=== PATIENT | female | born 1955 | race American Indian/Alaskan Native ===

== ENCOUNTER → 2018-08-26 | Day surgery (SDC) | payer OTHER ==
--- NOTE | 2018-08-25 20:44 | Pre Op History & Physical ---
DATE OF SURGERY: August 26, 2018. CHIEF COMPLAINT: Nasal obstruction of chronic sinusitis. HISTORY OF PRESENT ILLNESS: This 63-year-old female has a history of nasal obstruction, worse on the right side, a long-standing. The patient has no epistaxis. She has decreased sense of smell. She complains of frontal and maxillary pain. She has no previous injuries to the nose. The patient has obstructive sleep apnea and has difficulty using the nasal CPAP. Her condition has been treated with topical nasal steroid, decongestant, antibiotics with no improvement. A CT scan of paranasal sinuses done before surgery showed. The patient has chronic sinusitis involving the ethmoid sinuses on both sides, maxillary sinus involvement on both sides, sphenoid sinus involvement of both sides with deviated nasal septum to the left. REVIEW OF SYSTEMS: System review showed no recent cardiovascular, respiratory, or GI problem. PAST MEDICAL HISTORY: The patient has history of atrial fibrillation and polymyalgia rheumatica. PAST SURGICAL HISTORY: The patient has a trigger finger repair. ALLERGIES: SHE IS ALLERGIC TO CODEINE. MEDICATIONS: She is on Atenolol, prednisone, and omeprazole. SOCIAL HISTORY: Nonsmoker, nondrinker. FAMILY HISTORY: Noncontributory. PHYSICAL EXAMINATION: VITAL SIGNS: On examination, the patient's vital signs were within normal limits. EARS: Normal tympanic membranes bilaterally. NASAL: Deviated nasal septum to the right side about 40%, midportion to the left side about 30%. OROPHARYNX AND ORAL CAVITY: Show 2+ tonsils bilaterally with Mallampati level three. NECK: No lymph node or thyroid palpable. CHEST: Good air entry bilaterally. Cardiovascular : S1 and S2. No murmur noted. Ms. Tatum has chronic sinusitis nasal obstruction which has been resistant to conservative therapy. The suggested treatment is endoscopic sinus surgery, septoplasty, resection, inferior turbinate, and other necessary procedure. Complication of procedure includes, but not limited to bleeding, infection, thrombosis of the combines, double vision, meningitis, septal perforation, septal hematoma, persistent nasal obstruction, persistent nasal crusting, nasal deformity, recurrence of the sinus problem, and persistent nasal obstruction. Alternatives will be continue observation, continue antibiotic therapy, topical nasal steroid therapy, systemic steroid therapy decongestant. The patient has elected to undergo surgical procedure. MD CARYN Pickard/MODL /[id number] cc: Shun Jane MD
[~2018-08-26] MED LIST: ACETAMINOPHEN 1000 MG/100 ML IV ONE; ATENOLOL25 MG PO; CALCIUM 600 +1 EAC2 PO; COLLAGEN PO; DESFLURANE 240 ML BTL INH ONE; DEXAMETHASONE SOD PHOS 10 MG/1 ML VIAL ONE; DEXAMETHASONE SOD PHOS INJ 4 MG/ML VIAL ONE; EPINEPHRINE HCL 1:1000 1ML 1 MG/ML AMP ONE; FENTANYL CITRATE/PF 100MCG/2 ML INJ ONE; HYDRALAZINE HCL 20 MG/ML VIAL ONE; LIDOCAINE 1% W/EPINEPHRINE 20 ML VIAL ONE; LIDOCAINE HCL 2% JELLY 5 ML TUBE ONE; LIDOCAINE HCL 2% LOCAL INJ 5 ML SDV VIAL INJ ONE; MIDAZOLAM HCL 2 MG/2 ML VIAL ONE; MULTIVITAMINS1 EAC8 PO; OMEPRAZOLE40 MG PO; ONDANSETRON HCL INJ 2MG/ML 2ML 2 MG/ML VIAL ONE; PREDNISONE5 MG PO; PROPOFOL IV EMULSION 10 MG/ML 20 ML VIAL ONE; ROCURONIUM BROMIDE 10 MG/ML 5ML VIAL ONE; SUGAMMADEX SODIUM 200 MG/2 ML VIAL IV ONE; TRAMADOL HCL 50 MG TAB ONE; VITAMIN B12 PO
[2018-08-26 16:00] VITALS: BP 123/66
--- NOTE | 2018-08-26 18:44 | Operative Report ---
DATE OF PROCEDURE: 08/26/2018 SURGEON: All Campos MD CHIEF COMPLAINT: Chronic sinusitis with nasal obstruction. POSTOPERATIVE DIAGNOSIS: Chronic sinusitis with nasal obstruction. OPERATIVE PROCEDURES: 1. Bilateral anterior and posterior ethmoidectomy. 2. Bilateral maxillary sinus antrostomy. 3. Bilateral resection of polyps from maxillary antrum. 4. Bilateral sphenoidectomy. 5. Septoplasty. ANESTHESIA: Dr. Subramanian. INDICATIONS: This 63-year-old female has history of nasal obstruction, postnasal drip, and frontal and maxillary pain. She has decreased sense of smell. The patient has difficulty using her nasal CPAP because of her nasal obstruction. Her condition has been treated with topical nasal steroid, decongestant, antibiotics over many months with no improvement of the condition. On examination, she was noted to have a deviated nasal septum to the right side anteriorly about 40% in the mid to posterior portion on the left about 40%. A CT scan of paranasal sinuses done before surgery showed the patient has involvement of the ethmoid sinuses bilaterally. Maxillary sinus involvement, worse on the left side than the right. Sphenoid sinus involvement, worse on the right side. It also confirmed the nasal septum. It was decided endoscopic sinus surgery, septoplasty, and other necessary procedures will be beneficial for her. DESCRIPTION OF PROCEDURE: The patient was taken to operating room, put under general anesthesia, endotracheally intubated. The nose was injected with 1% Xylocaine with 1:100,000 epinephrine for hemostasis. An epinephrine-soaked pledget was inserted into the nose. These were subsequently removed. The left paranasal sinuses were approached first. Middle turbinate was medialized. The bulla ethmoidalis was entered. Anterior and posterior ethmoid sinuses were dissected in a systematic fashion. Inflamed mucosa was noted in the ethmoid sinuses on both sides. These were removed. Care was taken during dissection to ascertain, although was not entered. The sphenoid sinus was entered through the natural ostium. This was enlarged using the micro shaver. Inflamed tissue in the sphenoid sinus was dissected using the micro shaver. Using a curved probe, the natural ostium and maxillary sinus were entered. This was enlarged anteriorly and posteriorly using backbiter and Yandel-Cut forceps respectively. Large polyp and inflamed tissue were noted in the maxillary antrum on the left side. These were dissected using the 120-degree tip of the micro shaver. A nidus of infection with inspissated pus was noted in the maxillary sinus. This was removed and sent for anaerobic, aerobic, AFB, and fungal culture. The right paranasal sinuses were approached. Middle turbinate was medialized. The bulla ethmoidalis was entered. Anterior and posterior ethmoid sinuses were dissected in systematic fashion. Inflamed tissue was noted in both anterior and posterior ethmoid sinus area. Care was taken during dissection to ascertain, although it was not entered. A pocket of mucopus was noted in the posterior ethmoid sinus area. When this was opened up, the mucopus was suctioned out. The sphenoid sinus entered through natural ostium. This was enlarged using a micro shaver. Inflamed tissue in the sphenoid sinus on the right side was dissected using the micro shaver. Using a curved probe, natural ostium and maxillary sinus were entered. This was enlarged anterior and posteriorly using a backbiter and Yandel-Cut forceps respectively. Inflamed tissue of the maxillary antrum was dissected using the 120-degree tip of micro shaver. The right maxillary sinus just like the left one was reexamined using the 45-degree telescope. No other abnormality was noted. The septoplasty was performed. The hemitransfixion incision was done on the left side. Mucoperichondrial flap was elevated on the left. Bony cartilaginous junction was encountered and this was . Perpendicular plate of the ethmoid was transected, this was removed along with the vomer. The septal spur and cartilaginous spur were removed using [place] elevator and bony spur removed using a 4-mm straight chisel. The quadrangular cartilage after being freed from posterior inferior constrain was able to swing back in the midline. The hemitransfixion incision was closed using 4-0 chromic suture in interrupted fashion. Septal whipstitch was done using 4-0 plain gut suture to reapproximate the mucoperichondrial flap and prevent septal hematoma formation. NasoPore was inserted in sinus cavities on either side. This was done to prevent synechiae formation and for hemostasis. Because of the oozing in the nasal cavity and to prevent septal hematoma formation, NasoPore was inserted on either side of the septum in the nasal cavity as to prevent accumulation of hematoma in between the two mucoperichondrial flaps. The patient tolerated the above procedure well with estimated blood lossabout 50 mL. She was given 12 mg of Decadron intraoperatively. The patient was able to be transferred to recovery room in stable condition. MD CARYN Pickard/VICENTA /[id number]
--- OUTSIDE RECORDS SUMMARY | 2018-08-27 15:11 | XMS REPORT ---
Author Author Sahra Carrillo Organization [employer] Address Unknown Phone Unavailable Care Team Providers Care Director Of Recruiting Name Role Phone Sahra Carrillo CP Unavailable Allergies, Adverse Reactions, Alerts Substance Reaction Event Type Codeine Info Not Available Drug Allergy Problems Problem Type Condition Code Onset Dates Condition Status Assessment Counseling NOS Z71.9 Active Assessment Acute pain of right hip M25.551 Active Assessment Osteoarthritis involving multiple joints on both sides of body M15.9 Active Assessment Chronic cough R05 Active Problem Osteoarthritis involving multiple joints on both sides of body M15.9 Active Assessment PMR (polymyalgia rheumatica) M35.3 Active Problem PMR (polymyalgia rheumatica) M35.3 Active Assessment Pain in left shoulder M25.512 Active Assessment Acute pain of left hip M25.552 Active Assessment Menopausal and perimenopausal disorder N95.9 Active Assessment Pain in right shoulder M25.511 Active Medications Medication Code System Code Instructions Start Date End Date Status Dosage Zorvolex [facility] [address]-24 35 MG Orally Twice a day prn with food September 13, 2016 Active 1 capsule with food or milk as needed Omeprazole [facility] [address]-67 40 MG Orally Once a day Active [address] [facility] [address]-65 10 MG Orally Once a day with food October 03, 2016 Active [address] [facility] [address]-49 25 MG Orally Once a day Active 1 tablet Vital Signs Date/Time: October 03, 2016 Height 65 in Blood Pressure Diastolic 66 mm Hg Blood Pressure Systolic 121 mm Hg Weight 186 lbs Results No Known Results Summary Purpose [employer] Submission
--- OUTSIDE RECORDS SUMMARY | 2018-08-27 15:11 | XMS REPORT ---
Author Author Sahra Carrillo Organization [employer] Address Unknown Phone Unavailable Care Team Providers Care Cleaner And Dyer Name Role Phone Sahra Carrillo CP Unavailable Allergies No Known Allergies Problems Problem Type Condition Code Onset Dates Condition Status Problem Osteoarthritis involving multiple joints on both sides of body M15.9 Active Assessment Chronic cough R05 Active Problem PMR (polymyalgia rheumatica) M35.3 Active Medications No Known Medications Results No Known Results Summary Purpose [employer] Submission
--- OUTSIDE RECORDS SUMMARY | 2018-08-27 15:11 | XMS REPORT ---
Author Author Connie Wise Organization [employer] Address Unknown Phone Unavailable Care Team Providers Care Assistant Teacher Primary Name Role Phone Connie Wise CP Unavailable Allergies No Known Allergies Problems Problem Type Condition Code Onset Dates Condition Status Problem Bruit R09.89 Active Problem Supraventricular tachycardia I47.1 Active Problem Chest pain, unspecified R07.9 Active Medications No Known Medications Results No Known Results Summary Purpose [employer] Submission
--- OUTSIDE RECORDS SUMMARY | 2018-08-27 15:11 | XMS REPORT ---
Author Author Connie Wise Organization [employer] Address Unknown Phone Unavailable Care Team Providers Care Senior Loan Processor Name Role Phone Connie Wise CP Unavailable Allergies, Adverse Reactions, Alerts Substance Reaction Event Type Codeine Sulfate Info Not Available Drug Allergy Problems Problem Type Condition Code Onset Dates Condition Status Problem Bruit R09.89 Active Problem Supraventricular tachycardia I47.1 Active Problem Chest pain, unspecified R07.9 Active Assessment Bruit R09.89 Active Assessment Chest pain, unspecified R07.9 Active Assessment Supraventricular tachycardia I47.1 Active Medications Medication Code System Code Instructions Start Date End Date Status Dosage PredniSONE [facility] [address]-96 4 mg Orally Once a day Active 1 tablet Omeprazole [facility] 34255956862 20 MG Orally Once a day Active 1 capsule Atenolol [facility] 91581444571 25 MG Orally Once a day Active 1 tablet Vital Signs Date/Time: July 17, 2018 BMI 29.86 Index Weight 185 lbs Height 5ft 6in in Cardiac Monitoring Heart Rate 67 /min Blood Pressure Diastolic 81 mm Hg Blood Pressure Systolic 120 mm Hg Results No Known Results Summary Purpose [employer] Submission
--- OUTSIDE RECORDS SUMMARY | 2018-08-27 15:11 | XMS REPORT ---
Author Author Connie Wise Organization [employer] Address Unknown Phone Unavailable Care Team Providers Care Internet Application Developer Name Role Phone Connie Wise CP Unavailable Allergies No Known Allergies Problems Problem Type Condition Code Onset Dates Condition Status Problem Bruit R09.89 Active Problem Supraventricular tachycardia I47.1 Active Problem Chest pain, unspecified R07.9 Active Medications No Known Medications Results No Known Results Summary Purpose [employer] Submission
--- OUTSIDE RECORDS SUMMARY | 2018-08-27 15:11 | XMS REPORT ---
Author Author Sahra Carrillo Organization [employer] Address Unknown Phone Unavailable Care Team Providers Care Donor Services Technician Name Role Phone Sahra Carrillo CP Unavailable Allergies No Known Allergies Problems Problem Type Condition Code Onset Dates Condition Status Problem Osteoarthritis involving multiple joints on both sides of body M15.9 Active Assessment PMR (polymyalgia rheumatica) M35.3 Active Problem PMR (polymyalgia rheumatica) M35.3 Active Medications Medication Code System Code Instructions Start Date End Date Status Dosage PredniSONE [facility] [address]-51 5 MG Orally bid with food Jan 29, 2017 Active 1 tablet Results No Known Results Summary Purpose [employer] Submission
--- OUTSIDE RECORDS SUMMARY | 2018-08-27 15:11 | XMS REPORT ---
Author Author Sahra Carrillo Organization [employer] Address Unknown Phone Unavailable Care Team Providers Care Freight Weigher Name Role Phone Sahra Carrillo CP Unavailable Allergies No Known Allergies Problems Problem Type Condition Code Onset Dates Condition Status Problem Osteoarthritis involving multiple joints on both sides of body M15.9 Active Assessment SOB (shortness of breath) R06.02 Active Problem PMR (polymyalgia rheumatica) M35.3 Active Medications Medication Code System Code Instructions Start Date End Date Status Dosage Ergocalciferol [facility] [address]-94 [address] UNIT Orally once weekly October 05, 2016 Active 1 tab(s) Results No Known Results Summary Purpose [employer] Submission
--- OUTSIDE RECORDS SUMMARY | 2018-08-27 15:11 | XMS REPORT ---
Author Author Connie Wise Organization [employer] Address Unknown Phone Unavailable Care Team Providers Care Cow Puncher Name Role Phone Connie Wise CP Unavailable [...] Instructions Start Date End Date Status Dosage Omeprazole [facility] 65490406909 20 MG Orally Once a day Active 1 capsule Atenolol [facility] 29252058698 25 MG Orally Once a day Active 1 tablet PredniSONE [facility] [address]-00 4 mg Orally Once a day Active 1 tablet Vital Signs Date/Time: May 20, 2018 BMI 29.86 Index Weight 185 lbs Height 5ft 6in in Cardiac Monitoring Heart Rate 63 /min Blood Pressure Diastolic 81 mm Hg Blood Pressure Systolic 120 mm Hg Results No Known Results Summary Purpose [employer] Submission
--- OUTSIDE RECORDS SUMMARY | 2018-08-27 15:11 | XMS REPORT ---
Author Author Sahra Carrillo Organization [employer] Address Unknown Phone Unavailable Care Team Providers Care Clinical Nursing Coordinator Name Role Phone Sahra Carrillo CP Unavailable Allergies, Adverse Reactions, Alerts Substance Reaction Event Type Codeine Info Not Available Drug Allergy Problems Problem Type Condition Code Onset Dates Condition Status Assessment Chronic cough R05 Active Assessment Osteoarthritis involving multiple joints on both sides of body M15.9 Active Assessment Counseling NOS Z71.9 Active Problem Osteoarthritis involving multiple joints on both sides of body M15.9 Active Assessment PMR (polymyalgia rheumatica) M35.3 Active Problem PMR (polymyalgia rheumatica) M35.3 Active Assessment Acute pain of left hip M25.552 Active Assessment Acute pain of right hip M25.551 Active Assessment Pain in right shoulder M25.511 Active Assessment Pain in left shoulder M25.512 Active Medications Medication Code System Code Instructions Start Date End Date Status Dosage Omeprazole ND 54662234670 40 MG Orally Once a day Active 1 capsule Atenolol ND 45288669006 25 MG Orally Once a day Active 1 tablet PredniSONE ND 92802252191 5 MG Orally bid with food Active 1 tablet Zorvolex ND 29190439499 35 MG Orally Twice a day prn with food September 13, 2016 Active 1 capsule with food or milk as needed Ergocalciferol ND 30853059317 [address]68 UNIT Orally once weekly October 05, 2016 Active 1 tab(s) Vital Signs Date/Time: Feb 20, 2017 Height 65 in Blood Pressure Diastolic 70 mm Hg Blood Pressure Systolic 114 mm Hg Weight 196 lbs Results No Known Results Summary Purpose [employer] Submission
--- OUTSIDE RECORDS SUMMARY | 2018-08-27 15:11 | XMS REPORT ---
Author Author Sahra Carrillo Organization [employer] Address Unknown Phone Unavailable Care Team Providers Care [employer] Name Role Phone Sahra Carrillo CP Unavailable Allergies No Known Allergies Problems Problem Type Condition Code Onset Dates Condition Status Problem Osteoarthritis involving multiple joints on both sides of body M15.9 Active Assessment PMR (polymyalgia rheumatica) M35.3 Active Problem PMR (polymyalgia rheumatica) M35.3 Active Assessment Pure hypercholesterolemia E78.00 Active Medications No Known Medications Results No Known Results Summary Purpose [employer] Submission
--- OUTSIDE RECORDS SUMMARY | 2018-08-27 15:11 | XMS REPORT ---
Author Author Sahra Carrillo Organization [employer] Address Unknown Phone Unavailable Care Team Providers Care Strings Teacher Name Role Phone Sahra Carrillo CP Unavailable Allergies No Known Allergies Problems Problem Type Condition Code Onset Dates Condition Status Problem Osteoarthritis involving multiple joints on both sides of body M15.9 Active Problem PMR (polymyalgia rheumatica) M35.3 Active Medications No Known Medications Results No Known Results Summary Purpose [employer] Submission
--- OUTSIDE RECORDS SUMMARY | 2018-08-27 15:11 | XMS REPORT | Continuity of Care Document ---
Author Author [facility] Interface Address Unknown Phone Unavailable Problems Problem Status Onset Date Classification Date Reported Comments Source Osteoarthritis involving multiple joints on both sides of body Active Diagnosis 06/25/2018 Sahra Najam Chronic cough Active Diagnosis 06/27/2017 Sahra Najam PMR Active Problem 06/25/2018 Sahra Najam Pure hypercholesterolemia Active Diagnosis 10/26/2016 Sahra Najam SOB Active Diagnosis 10/11/2016 Sahra Najam Bruit Active Problem 08/07/2018 Senthil Tan MD, PA Chest pain, unspecified Active Problem 08/07/2018 Senthil Tan MD, PA Supraventricular tachycardia Active Problem 08/07/2018 Senthil Tan MD, PA Counseling NOS Active Diagnosis 06/25/2018 Sahra Najam Acute pain of left hip Active Diagnosis 06/25/2018 Sahra Najam Acute pain of right hip Active Diagnosis 06/25/2018 Sahra Najam Pain in right shoulder Active Diagnosis 06/25/2018 Sahra Najam Pain in left shoulder Active Diagnosis 06/25/2018 Sahra Najam Menopausal and perimenopausal disorder Active Diagnosis 10/10/2016 Sahra Najam Muscle spasm Active Diagnosis 06/25/2018 Sahra Najam Medications Medication Details Route Status Patient Instructions Ordering Provider Order Date Source PredniSONE 3 tabs Orally Active 1 MG Orally daily Najam 06/22/2018 Sahra Najam Tizanidine HCl 1 tablet as needed Orally Active 4 MG Orally bedtime Najam 06/11/2018 Sahra Najam PredniSONE 1 tab(s) with food Orally Active 10 mg Orally daily Najam 04/23/2018 Sahra Najam Tizanidine HCl 1 tablet as needed Orally Active 4 MG Orally bedtime Najam 11/12/2017 Sahra Najam Diclofenac Sodium 1 tab(s) with food as needed Orally Active 50 MG Orally Twice a day Najam 11/12/2017 Sahra Najam PredniSONE 1 tablet Orally Active 5 mg Orally daily Najam 09/23/2017 Sahra Gerardo Zorvolex 1 capsule with food or milk as needed Orally Active 35 MG Orally Twice a day [facility] 09/02/2017 Sahra Nanelson PredniSONE 4 tabs Orally Active 1 mg Orally Once a day [facility] 04/10/2017 Sahra Naja PredniSONE 1 tablet Orally Active 1 mg Orally Once a day [facility] 04/10/2017 Sahra Nanelson PredniSONE 1 tablet Orally Active 5 MG Orally bid with food [facility] 01/29/2017 Sahra Nanelson Ergocalciferol 1 tab(s) Orally Active 35303 UNIT Orally once weekly [facility] 10/05/2016 Sahra [facility] Ergocalciferol 1 tab(s) Orally Active 16590 UNIT Orally once weekly [facility] 10/05/2016 Sahra Nanelson PredniSONE 1 tablet Orally Active 10 MG Orally Once a day with food [facility] 10/03/2016 Sahra Nanelsonm Zorvolex 1 capsule with food or milk as needed Orally Active 35 MG Orally Twice a day prn with food [facility] 09/13/2016 Sahra Nanelsonm Zorvolex 1 capsule with food or milk as needed Orally Active 35 MG Orally Twice a day prn with food [facility] 09/13/2016 Sahra [facility] Omeprazole 1 capsule Orally Active 40 MG Orally Once a day Frandy Tan MD, PA,[facility] Atenolol 1 tablet Orally Active 25 MG Orally Once a day Frandy Tan MD, PA,[facility] PredniSONE 1 tablet Orally Active 10 MG Orally Once a day Frandy Tan MD, PA Omeprazole 1 capsule Orally Active 40 MG [facility] PredniSONE 1 tablet Orally Active 5 mg [facility] PredniSONE 1 tablet Orally Active 5 MG Orally bid [facility] 1 capsule Orally Active 40 mg Orally Once a day Frandy Tan MD, PA Atenolol 1 tablet Orally Active 25 MG Orally Once a day Senthil Gardner MD, PA PredniSONE 1 tablet Orally Active 5 MG Orally bid with food [facility] PredniSONE 1 tablet Orally Active 4 mg Orally Once a day Frandy Tan MD, PA Omeprazole 1 capsule Orally Active 20 MG Orally Once a day Frandy Tan MD, PA,Sahrajoseph Carrillo PredniSONE TAKE 1 TABLET BY MOUTH EVERY DAY WITH FOOD po Active 10 MG po daily Najam Sahra Najam PredniSONE 3 tabs orally Active 1 mg orally daily Najam Sahra Najam PredniSONE 3 mg TAKE 1 TABLET BY MOUTH EVERY DAY NA Active - Najam Sahra Najam Allergies, Adverse Reactions, Alerts Substance Category Reaction Severity Reaction type Status Date Reported Comments Source Codeine Adverse Reaction Info Not Available Adverse Reaction Active 06/18/2018 Sahra Najam Codeine Sulfate Adverse Reaction Info Not Available Adverse Reaction Active 07/17/2018 Senthil Tan MD, PA Immunizations Immunization Date Given Site Status Last Updated Comments Source Results Order Name Results Value Reference Range Date Interpretation Comments Source Vital Signs Vital Sign Value Date Comments Source Weight 185 07/17/2018 Senthil Tan MD, PA Heart Rate 67 07/17/2018 Senthil Tan MD, PA Diastolic (mm Hg) 81 07/17/2018 Senthil Tan MD, PA Systolic (mm Hg) 120 07/17/2018 Senthil Tan MD, PA Height 65 06/18/2018 Sahra Najam Diastolic (mm Hg) 73 06/18/2018 Sahra Najam Systolic (mm Hg) 122 06/18/2018 Sahra Najam Weight 189.0 06/18/2018 Sarha Najam Weight 185 05/20/2018 Senthil Tan MD, PA Heart Rate 63 05/20/2018 Senthil Tan MD, PA Diastolic (mm Hg) 81 05/20/2018 Senthil Tan MD, PA Systolic (mm Hg) 120 05/20/2018 Senthil Tan MD, PA Height 65 02/11/2018 Sahra Najam Diastolic (mm Hg) 70 02/11/2018 Sahra Najam Systolic (mm Hg) 120 02/11/2018 Sahra Najam Weight 193.8 02/11/2018 Sahra Najam Height 65 11/12/2017 Sahra Najam Diastolic (mm Hg) 66 11/12/2017 Sahra Najam Systolic (mm Hg) 122 11/12/2017 Sahra Najam Weight 188.0 11/12/2017 Sahra Najam Height 65 09/02/2017 Sahra Najam Diastolic (mm Hg) 73 09/02/2017 Sahra Najam Systolic (mm Hg) 123 09/02/2017 Sahra Najam Weight 192 09/02/2017 Sahra Najam Height 65 06/25/2017 Sahra Najam Diastolic (mm Hg) 77 06/25/2017 Sahra Najam Systolic (mm Hg) 122 06/25/2017 Sahra Najam Weight 193 06/25/2017 Sahra Najam Height 65 02/20/2017 Sahra Najam Diastolic (mm Hg) 70 02/20/2017 Sahra Najam Systolic (mm Hg) 114 02/20/2017 Sahra Najam Weight 196 02/20/2017 Sahra Najam Height 65 12/19/2016 Sahra Najam Diastolic (mm Hg) 73 12/19/2016 Sahra Najam Systolic (mm Hg) 110 12/19/2016 Sahra Najam Weight 191 12/19/2016 Sahra Najam Weight 189 11/01/2016 Senthil Tan MD, PA Diastolic (mm Hg) 70 11/01/2016 Senthil Tan MD, PA Systolic (mm Hg) 120 11/01/2016 Senthil Tan MD, PA Height 65 10/31/2016 Sahra Najam Diastolic (mm Hg) 70 10/31/2016 Sahra Najam Systolic (mm Hg) 114 10/31/2016 Sahra Najam Weight 190 10/31/2016 Sahra Najam Height 65 10/03/2016 Sahra Najam Diastolic (mm Hg) 66 10/03/2016 Sahra Najam Systolic (mm Hg) 121 10/03/2016 Sahra Najam Weight 186 10/03/2016 Sahra Najam Height 65 09/13/2016 Sahra Najam Diastolic (mm Hg) 85 09/13/2016 Sahra Najam Systolic (mm Hg) 123 09/13/2016 Sahra Najam Weight 186 09/13/2016 Sahra Najam Weight 184 05/17/2016 Senthil Tan MD, PA Heart Rate 56 05/17/2016 Senthil Tan MD, PA Diastolic (mm Hg) 68 05/17/2016 Senthil Tan MD, PA Systolic (mm Hg) 130 05/17/2016 Senthil Tan MD, PA Weight 180 04/11/2016 Senthil Tan MD, PA Heart Rate 63 04/11/2016 Senthil Tan MD, PA Diastolic (mm Hg) 77 04/11/2016 Senthil Tan MD, PA Systolic (mm Hg) 130 04/11/2016 Senthil Tan MD, PA Encounters Location Location Details Encounter Type Encounter Number Reason For Visit Attending Provider ADM Date DC Date Status Source Senthil Tan MD, PA Unknown [id number] 04/11/2016 04/11/2016 Senthil Tan MD, PA Senthil Tan MD, PA Unknown [id number] 04/11/2016 04/11/2016 Senthil Tan MD, PA Senthil Tan MD, PA Unknown [id number] 04/11/2016 04/11/2016 Senthil Tan MD, PA Senthil Tan MD, PA Unknown [id number] 04/11/2016 04/11/2016 Senthil Tan MD, PA Senthil Tan MD, PA echo & carotid dopplers [id number] 05/17/2016 05/17/2016 Senthil Tan MD, PA Senthil Tan MD, PA echo & carotid dopplers [id number] 05/17/2016 05/17/2016 Senthil Tan MD, PA Senthil Tan MD, PA Office stress test [id number] 05/17/2016 05/17/2016 Senthil Tan MD, PA Senthil Tan MD, PA Office stress test [id number] 05/17/2016 05/17/2016 Senthil Tan MD, PA Senthil Tan MD, PA Follow-Up [id number] 05/17/2016 05/17/2016 Senthil Tan MD, PA Senthil Tan MD, PA Follow-Up [id number] 05/17/2016 05/17/2016 Senthil Tan MD, PA Senthil Tan MD, PA Follow-Up [id number] 05/17/2016 05/17/2016 Senthil Tan MD, PA Senthil Tan MD, PA Follow-Up [id number] 05/17/2016 05/17/2016 Senthil Tan MD, PA Procedures Procedure Code Date Perfomer Comments Source
--- OUTSIDE RECORDS SUMMARY | 2018-08-27 15:11 | XMS REPORT ---
Author Author Sahra Carrillo Organization [employer] Address Unknown Phone Unavailable Care Team Providers Care Food Service Worker Hospital Name Role Phone Sahra Carrillo CP Unavailable [...] Start Date End Date Status Dosage Ergocalciferol [facility] [address]-19 61076 UNIT Orally once weekly October 05, 2016 Active 1 tab(s) Omeprazole [facility] [address]-05 40 MG Orally Once a day Active 1 capsule Atenolol [facility] [address]-82 25 MG Orally Once a day Active 1 tablet PredniSONE [facility] [address]-83 5 MG Orally bid with food Jan 29, 2017 Active 1 tablet Zorvolex [facility] [address]-60 35 MG Orally Twice a day prn with food September 13, 2016 Active 1 capsule with food or milk as needed Vital Signs Date/Time: October 31, 2016 Height 65 in Blood Pressure Diastolic 70 mm Hg Blood Pressure Systolic 114 mm Hg Weight 190 lbs Results No Known Results Summary Purpose [employer] Submission
--- OUTSIDE RECORDS SUMMARY | 2018-08-27 15:11 | XMS REPORT ---
Author Author Sahra Carrillo Organization [employer] Address Unknown Phone Unavailable Care Team Providers Care Plodding Machine Operator Name Role Phone Sahra Carrillo CP Unavailable [...] Start Date End Date Status Dosage Omeprazole [facility] [address]-52 40 MG Orally Once a day Active 1 capsule Zorvolex [facility] [address]-54 35 MG Orally Twice a day prn with food September 13, 2016 Active 1 capsule with food or milk as needed Atenolol [facility] [address]-17 25 MG Orally Once a day Active 1 tablet Ergocalciferol [facility] [address]-37 57436 UNIT Orally once weekly October 05, 2016 Active 1 tab(s) PredniSONE [facility] [address]-32 5 MG Orally bid with food Active 1 tablet Vital Signs Date/Time: Dec 19, 2016 Height 65 in Blood Pressure Diastolic 73 mm Hg Blood Pressure Systolic 110 mm Hg Weight 191 lbs Results No Known Results Summary Purpose eClinicalWorks Submission
--- OUTSIDE RECORDS SUMMARY | 2018-08-27 15:12 | XMS REPORT ---
Author Author Sahra Carrillo Organization [employer] Address Unknown Phone Unavailable Care Team Providers Care Sheriffs Name Role Phone Sahra Carrillo CP Unavailable Allergies No Known Allergies Problems Problem Type Condition Code Onset Dates Condition Status Problem Osteoarthritis involving multiple joints on both sides of body M15.9 Active Problem PMR (polymyalgia rheumatica) M35.3 Active Medications Medication Code System Code Instructions Start Date End Date Status Dosage PredniSONE [facility] 40555846294 1 mg Orally Once a day Apr 10, 2017 August 08, 2017 Active 4 tabs Results No Known Results Summary Purpose [employer]Works Submission
--- OUTSIDE RECORDS SUMMARY | 2018-08-27 15:12 | XMS REPORT ---
Author Author Sahra Carrillo Organization [employer] Address Unknown Phone Unavailable Care Team Providers Care Automatic Spreader Operator Name Role Phone Sahra Carrillo CP Unavailable Allergies No Known Allergies Problems Problem Type Condition Code Onset Dates Condition Status Problem Osteoarthritis involving multiple joints on both sides of body M15.9 Active Problem PMR (polymyalgia rheumatica) M35.3 Active Medications No Known Medications Results No Known Results Summary Purpose [employer]Works Submission
--- OUTSIDE RECORDS SUMMARY | 2018-08-27 15:12 | XMS REPORT ---
Author Author Sahra Carrillo Organization [employer] Address Unknown Phone Unavailable Care Team Providers Care Cafeteria Table Attendant Name Role Phone Sahra Carrillo CP Unavailable Allergies No Known Allergies Problems Problem Type Condition Code Onset Dates Condition Status Problem Osteoarthritis involving multiple joints on both sides of body M15.9 Active Assessment PMR (polymyalgia rheumatica) M35.3 Active Problem PMR (polymyalgia rheumatica) M35.3 Active Medications Medication Code System Code Instructions Start Date End Date Status Dosage PredniSONE [facility] 50796509094 10 mg Orally daily Apr 23, 2018 Active 1 tab(s) with food Results No Known Results Summary Purpose [employer]ClinicalWorks Submission
--- OUTSIDE RECORDS SUMMARY | 2018-08-27 15:12 | XMS REPORT ---
Author Author Connie Wise Organization [employer] Address Unknown Phone Unavailable Care Team Providers Care Fisheries Inspector Name Role Phone Connie Wise CP Unavailable Allergies, Adverse Reactions, Alerts Substance Reaction Event Type Codeine Sulfate Info Not Available Drug Allergy Problems Problem Type Condition Code Onset Dates Condition Status Problem Bruit R09.89 Active Problem Chest pain, unspecified R07.9 Active Problem Supraventricular tachycardia I47.1 Active Assessment Chest pain, unspecified R07.9 Active Assessment Supraventricular tachycardia I47.1 Active Assessment Bruit R09.89 Active Medications Medication Code System Code Instructions Start Date End Date Status Dosage Omeprazole [facility] [address]-70 40 MG Orally Once a day Active 1 capsule [address] [facility] [address]-13 25 MG Orally Once a day Active 1 tablet PredniSONE [facility] [address]-64 10 MG Orally Once a day Active 1 tablet Vital Signs Date/Time: November 01, 2016 BMI 30.50 Index Weight 189 lbs Height 5ft 6in in Cardiac Monitoring Heart Rate 120/70 /min Blood Pressure Diastolic 70 mm Hg Blood Pressure Systolic 120 mm Hg Results No Known Results Summary Purpose [employer]ClinicalWorks Submission
--- OUTSIDE RECORDS SUMMARY | 2018-08-27 15:12 | XMS REPORT ---
Author Author Sahra Carrillo Organization [employer] Address Unknown Phone Unavailable Care Team Providers Care Care Professionals Name Role Phone Sahra Carrillo CP Unavailable Allergies, Adverse Reactions, Alerts Substance Reaction Event Type Codeine Info Not Available Drug Allergy Problems Problem Type Condition Code Onset Dates Condition Status Assessment Counseling NOS Z71.9 Active Assessment Acute pain of right hip M25.551 Active Assessment Osteoarthritis involving multiple joints on both sides of body M15.9 Active Problem Osteoarthritis involving multiple joints on both sides of body M15.9 Active Assessment Muscle spasm M62.838 Active Problem PMR (polymyalgia rheumatica) M35.3 Active Assessment Pain in left shoulder M25.512 Active Assessment Acute pain of left hip M25.552 Active Assessment PMR (polymyalgia rheumatica) M35.3 Active Assessment Pain in right shoulder M25.511 Active Medications Medication Code System Code Instructions Start Date End Date Status Dosage Omeprazole [place] 44283166800 40 MG Orally Once a day Active 1 capsule Tizanidine HCl ND 28680763226 4 MG Orally bedtime November 12, 2017 Active 1 tablet as needed Zorvolex [facility] 24570599289 35 MG Orally Twice a day September 02, 2017 Active 1 capsule with food or milk as needed PredniSONE ND 46927408681 5 MG Orally bid with food Active 1 tablet Ergocalciferol ND 43004866580 15685 UNIT Orally once weekly October 05, 2016 Active 1 tab(s) PredniSONE ND 68885596566 5 mg Orally daily Active 1 tablet Diclofenac Sodium ND 72857840875 50 MG Orally Twice a day November 12, 2017 Active 1 tab(s) with food as needed Zorvolex ND 13116924791 35 MG Orally Twice a day prn with food September 13, 2016 Active 1 capsule with food or milk as needed Atenolol ND 29897437397 25 MG Orally Once a day Active 1 tablet Vital Signs Date/Time: November 12, 2017 Height 65 in Blood Pressure Diastolic 66 mm Hg Blood Pressure Systolic 122 mm Hg Weight 188.0 lbs Results No Known Results Summary Purpose eClinicalWorks Submission
--- OUTSIDE RECORDS SUMMARY | 2018-08-27 15:12 | XMS REPORT ---
Author Author Connie Wise Organization [employer] Address Unknown Phone Unavailable Care Team Providers Care Beam Machine Operator Name Role Phone Connie Wise CP Unavailable Allergies, Adverse Reactions, Alerts Substance Reaction Event Type Codeine Sulfate Info Not Available Drug Allergy Encounters Encounter Location Date Unknown Senthil Tan MD, [place] Apr 11, 2016 Follow-Up Senthil Tan [place], [place] May 17, 2016 Problems Problem Type Condition ICD-9 Code Onset Dates Condition Status Problem Bruit R09.89 Active Problem Chest pain, unspecified R07.9 Active Problem Supraventricular tachycardia I47.1 Active Assessment Chest pain, unspecified R07.9 Active Assessment Supraventricular tachycardia I47.1 Active Assessment Bruit R09.89 Active Medications Medication Code System Code Instructions Start Date End Date Status Dosage Atenolol [facility] [address]-13 25 MG Orally Once a day Active 1 [facility] [address]-17 40 MG Orally Once a day Active 1 capsule Social History Social History Element Qualifiers Date Reported Tobacco Use: . Are you a: never smoker May 17, 2016 Do you drink alcohol? . Status: No May 17, 2016 Vital Signs Date/Time: Apr 11, 2016 Weight 180 lbs Cardiac Monitoring Heart Rate 63 /min Blood Pressure Diastolic 77 mm Hg Blood Pressure Systolic 130 mm Hg Summary Purpose eClinicalWorks Submission
--- OUTSIDE RECORDS SUMMARY | 2018-08-27 15:12 | XMS REPORT ---
Author Author Connie Wise Organization [employer] Address Unknown Phone Unavailable Care Team Providers Care Hypoid Gear Tester Name Role Phone Connie Wise CP Unavailable Allergies No Known Allergies Problems Problem Type Condition Code Onset Dates Condition Status Problem Bruit R09.89 Active Problem Supraventricular tachycardia I47.1 Active Problem Chest pain, unspecified R07.9 Active Assessment Supraventricular tachycardia I47.1 Active Medications Medication Code System Code Instructions Start Date End Date Status Dosage Omeprazole [facility] 09192108933 20 MG Orally Once a day Active 1 capsule Results No Known Results Summary Purpose eClinicalWorks Submission
--- OUTSIDE RECORDS SUMMARY | 2018-08-27 15:12 | XMS REPORT ---
Author Author Sahra Carrillo Organization [employer] Address Unknown Phone Unavailable Care Team Providers Care Asset Protection Lead Name Role Phone Sahra Carrillo CP Unavailable Allergies No Known Allergies Problems Problem Type Condition Code Onset Dates Condition Status Problem Osteoarthritis involving multiple joints on both sides of body M15.9 Active Problem PMR (polymyalgia rheumatica) M35.3 Active Assessment PMR (polymyalgia rheumatica) M35.3 Active Medications Medication Code System Code Instructions Start Date End Date Status Dosage PredniSONE [facility] 13038768534 1 MG Orally daily Jun 22, 2018 Active 3 tabs Results No Known Results Summary Purpose eClinicalWorks Submission
--- OUTSIDE RECORDS SUMMARY | 2018-08-27 15:12 | XMS REPORT ---
Author Author Sahra Carrillo Organization [employer] Address Unknown Phone Unavailable Care Team Providers Care Special Warfare Boat Operator Name Role Phone Sahra Carrillo CP [...]
--- OUTSIDE RECORDS SUMMARY | 2018-08-27 15:12 | XMS REPORT ---
Author Author Sahra Carrillo Organization [employer] Address Unknown Phone Unavailable Care Team Providers Care Earth Boring Machine Operator Name Role Phone Sahra Carrillo CP Unavailable Allergies, Adverse Reactions, Alerts Substance Reaction Event Type Codeine Info Not Available Drug Allergy Problems Problem Type Condition Code Onset Dates Condition Status Assessment Pain in right shoulder M25.511 Active Assessment Pain in left shoulder M25.512 Active Problem Osteoarthritis involving multiple joints on both sides of body M15.9 Active Assessment Osteoarthritis involving multiple joints on both sides of body M15.9 Active Assessment Counseling NOS Z71.9 Active Assessment Acute pain of left hip M25.552 Active Assessment Acute pain of right hip M25.551 Active Medications Medication Code System Code Instructions Start Date End Date Status Dosage Zorvolex [facility] [address]-80 35 MG Orally Twice a day prn with food September 13, 2016 Active 1 capsule with food or milk as needed Omeprazole [facility] [address]-22 40 MG Orally Once a day Active 1 capsule Atenolol [facility] [address]-37 25 MG Orally Once a day Active 1 tablet Vital Signs Date/Time: September 13, 2016 Height 65 in Blood Pressure Diastolic 85 mm Hg Blood Pressure Systolic 123 mm Hg Weight 186 lbs Results No Known Results Summary Purpose eClinicalWorks Submission
--- OUTSIDE RECORDS SUMMARY | 2018-08-27 15:12 | XMS REPORT ---
Author Author Connie Wise Organization [employer] Address Unknown Phone Unavailable Care Team Providers Care Director [employer] Name Role Phone Connie Wise CP Unavailable Allergies No Known Allergies Problems Problem Type Condition Code Onset Dates Condition Status Problem Bruit R09.89 Active Problem Supraventricular tachycardia I47.1 Active Problem Chest pain, unspecified R07.9 Active Medications Medication Code System Code Instructions Start Date End Date Status Dosage Omeprazole [facility] 48982421663 40 mg Orally Once a day Active 1 capsule Atenolol [facility] 96515398061 25 MG Orally Once a day Active 1 tablet Results No Known Results Summary Purpose eClinicalWorks Submission
--- OUTSIDE RECORDS SUMMARY | 2018-08-27 15:12 | XMS REPORT ---
Author Author Connie Wise Organization [employer] Address Unknown Phone Unavailable Care Team Providers Care Results Technician Name Role Phone Connie Wise CP Unavailable [...] Start Date End Date Status Dosage Atenolol [facility] [address]-84 25 MG Orally Once a day Active 1 [facility] [address]-67 40 MG Orally Once a day Active 1 capsule Social History Social History Element Qualifiers Date Reported Tobacco Use: . Are you a: never smoker May 17, 2016 Do you drink alcohol? . Status: No May 17, 2016 Vital Signs Date/Time: May 17, 2016 Weight 184 lbs Cardiac Monitoring Heart Rate 56 /min Blood Pressure Diastolic 68 mm Hg Blood Pressure Systolic 130 mm Hg Summary Purpose eClinicalWorks Submission
--- OUTSIDE RECORDS SUMMARY | 2018-08-27 15:12 | XMS REPORT ---
Author Author Sahra Carrillo Organization [employer] Address Unknown Phone Unavailable Care Team Providers Care Patient Care Coordinator Name Role Phone Sahra Carrillo CP Unavailable Allergies No Known Allergies Problems Problem Type Condition Code Onset Dates Condition Status Problem Osteoarthritis involving multiple joints on both sides of body M15.9 Active Problem PMR (polymyalgia rheumatica) M35.3 Active Medications No Known Medications Results No Known Results Summary Purpose eClinicalWorks Submission
--- OUTSIDE RECORDS SUMMARY | 2018-08-27 15:12 | XMS REPORT ---
Author Author Sahra Carrillo Organization [employer] Address Unknown Phone Unavailable Care Team Providers Care Putty Maker Name Role Phone Sahra Carrillo CP Unavailable Allergies, Adverse Reactions, Alerts Substance Reaction Event Type Codeine Info Not Available Drug Allergy Problems Problem Type Condition Code Onset Dates Condition Status Assessment Osteoarthritis involving multiple joints on both sides of body M15.9 Active Assessment Acute pain of left hip M25.552 Active Assessment Acute pain of right hip M25.551 Active Assessment Counseling NOS Z71.9 Active Problem Osteoarthritis involving multiple joints on both sides of body M15.9 Active Problem PMR (polymyalgia rheumatica) M35.3 Active Assessment Pain in right shoulder M25.511 Active Assessment Pain in left shoulder M25.512 Active Assessment Muscle spasm M62.838 Active Assessment PMR (polymyalgia rheumatica) M35.3 Active Medications Medication Code System Code Instructions Start Date End Date Status Dosage Omeprazole ND 64751840231 20 MG Orally Once a day Active 1 capsule Diclofenac Sodium ND 16713767247 50 MG Orally Twice a day November 12, 2017 Active 1 tab(s) with food as needed Zorvolex [facility] 08776832107 35 MG Orally Twice a day prn with food September 13, 2016 Active 1 capsule with food [place] [address]-20 1 mg orally daily Active 3 tabs Atenolol ND 51310294526 25 MG Orally Once a day Active 1 tablet PredniSONE [facility] 65387018829 - Active 3 mg TAKE 1 TABLET BY MOUTH EVERY DAY Zorvolex [facility] 49816023237 35 MG Orally Twice a day September 02, 2017 Active 1 capsule with food or milk as needed PredniSONE ND 92547905325 10 MG po daily Inactive TAKE 1 TABLET BY MOUTH EVERY DAY WITH FOOD Ergocalciferol ND 72460671907 [address]3597 UNIT Orally once weekly October 05, 2016 Active 1 tab(s) Vital Signs Date/Time: Jun 18, 2018 Height 65 in Blood Pressure Diastolic 73 mm Hg Blood Pressure Systolic 122 mm Hg Weight 189.0 lbs Results No Known Results Summary Purpose [employer] Submission
--- OUTSIDE RECORDS SUMMARY | 2018-08-27 15:12 | XMS REPORT ---
Author Author Connie Wise Organization [employer] Address Unknown Phone Unavailable Care Team Providers Care Phys Asst Name Role Phone Connie Wise CP Unavailable Encounters Encounter Location Date echo & carotid [place]pp[place] May 17, 2016 Unknown [facility] [place] [place] Apr 11, 2016 Follow-Up [facility] [place] [place] May 17, 2016 Office stress test [facility] [place] [place] May 17, 2016 Problems Problem Type Condition ICD-9 Code Onset Dates Condition Status Problem Bruit R09.89 Active Problem Chest pain, unspecified R07.9 Active Problem Supraventricular tachycardia I47.1 Active Social History Social History Element Qualifiers Date Reported Tobacco Use: . Are you a: never smoker May 17, 2016 Do you drink alcohol? . Status: No May 17, 2016 Summary Purpose [employer] Submission
--- OUTSIDE RECORDS SUMMARY | 2018-08-27 15:12 | XMS REPORT ---
Author Author Sahra Carrillo Organization [employer] Address Unknown Phone Unavailable Care Team Providers Care Entry Driver Operator Name Role Phone Sahra Carrillo CP Unavailable Allergies No Known Allergies Problems Problem Type Condition Code Onset Dates Condition Status Problem Osteoarthritis involving multiple joints on both sides of body M15.9 Active Problem PMR (polymyalgia rheumatica) M35.3 Active Medications No Known Medications Results No Known Results Summary Purpose [employer] Submission
--- OUTSIDE RECORDS SUMMARY | 2018-08-27 15:12 | XMS REPORT ---
Author Author Connie Wise Organization [employer] Address Unknown Phone Unavailable Care Team Providers Care Nurse Care Manager Name Role Phone Connie Wise CP Unavailable Allergies No Known Allergies Problems Problem Type Condition Code Onset Dates Condition Status Problem Bruit R09.89 Active Problem Supraventricular tachycardia I47.1 Active Problem Chest pain, unspecified R07.9 Active Assessment Supraventricular tachycardia I47.1 Active Medications Medication Code System Code Instructions Start Date End Date Status Dosage Atenolol [facility] 65583974626 25 MG Orally Once a day Active 1 tablet Results No Known Results Summary Purpose [employer] Submission
--- OUTSIDE RECORDS SUMMARY | 2018-08-27 15:12 | XMS REPORT ---
Author Author Sahra Carrillo Organization [employer] Address Unknown Phone Unavailable Care Team Providers Care Joint Machine Operator Name Role Phone Sahra Carrillo CP Unavailable Allergies No Known Allergies Problems Problem Type Condition Code Onset Dates Condition Status Problem Osteoarthritis involving multiple joints on both sides of body M15.9 Active Problem PMR (polymyalgia rheumatica) M35.3 Active Medications Medication Code System Code Instructions Start Date End Date Status Dosage Ergocalciferol [facility] 40324520180 98250 UNIT Orally once weekly October 05, 2016 Active 1 tab(s) Results No Known Results Summary Purpose [employer] Submission
--- OUTSIDE RECORDS SUMMARY | 2018-08-27 15:12 | XMS REPORT ---
Author Author Sahra Carrillo Organization [employer] Address Unknown Phone Unavailable Care Team Providers Care Glove Parts Cutter Name Role Phone Sahra Carrillo CP Unavailable [...] Start Date End Date Status Dosage Zorvolex [facility] [place] 2[place] 63310526353 35 MG Orally Twice a day prn with food September 13, 2016 Active 1 capsule with food or milk as needed Atenolol ND 33841293693 25 MG Orally Once a day Active 1 tablet Ergocalciferol [facility] [place] 2[place] 71396535792 24540 UNIT Orally once weekly October 05, 2016 Active 1 tab(s) Omeprazole ND 95465116054 40 MG Orally Once a day Active 1 capsule PredniSONE ND 39702585564 5 MG Orally bid with food Active 1 tablet Zorvolex [facility] [place] 2[place] 26475795963 35 MG Orally Twice a day September 02, 2017 Active 1 capsule with food or milk as needed PredniSONE ND 34675012064 5 mg Orally daily Active 1 tablet Vital Signs Date/Time: September 02, 2017 Height 65 in Blood Pressure Diastolic 73 mm Hg Blood Pressure Systolic 123 mm Hg Weight 192 lbs Results No Known Results Summary Purpose [employer] Submission
--- OUTSIDE RECORDS SUMMARY | 2018-08-27 15:12 | XMS REPORT ---
Author Author Sahra Carrillo Organization [employer] Address Unknown Phone Unavailable Care Team Providers Care Toe Trimmer Name Role Phone Sahra Carrillo CP Unavailable [...] Start Date End Date Status Dosage Ergocalciferol [facility] 24509035142 98190 UNIT Orally once weekly October 05, 2016 Active 1 tab(s) Zorvolex [facility] 30710102605 35 MG Orally Twice a day prn with food September 13, 2016 Active 1 capsule with food or milk as needed Omeprazole [facility] 66566805285 40 MG Orally Once a day Active 1 capsule Atenolol [facility] 31923389985 25 MG Orally Once a day Active 1 tablet PredniSONE [facility] [address]-59 1 mg Orally Once a day Apr 10, 2017 August 08, 2017 Active 1 tablet PredniSONE [facility] 68626248085 5 mg Orally daily September 23, 2017 Active 1 tablet Vital Signs Date/Time: Jun 25, 2017 Height 65 in Blood Pressure Diastolic 77 mm Hg Blood Pressure Systolic 122 mm Hg Weight 193 lbs Results No Known Results Summary Purpose [employer] Submission
--- OUTSIDE RECORDS SUMMARY | 2018-08-27 15:12 | XMS REPORT ---
Author Author Sahra Carrillo Organization [employer] Address Unknown Phone Unavailable Care Team Providers Care Television Operator Name Role Phone Sahra Carrillo CP [...] Start Date End Date Status Dosage Ergocalciferol [facility] 60016386888 88924 UNIT Orally once weekly October 05, 2016 Active 1 tab(s) Atenolol ND 91154153399 25 MG Orally Once a day Active 1 tablet PredniSONE ND 59134805136 10 MG po daily Active TAKE 1 TABLET BY MOUTH EVERY DAY WITH FOOD Diclofenac Sodium ND 51404199426 50 MG Orally Twice a day November 12, 2017 Active 1 tab(s) with food as needed Zorvolex [facility] 72866308932 35 MG Orally Twice a day prn with food September 13, 2016 Active 1 capsule with food or milk as needed Omeprazole ND 14574524441 40 MG Orally Once a day Active 1 capsule Tizanidine HCl ND 99770092432 4 MG Orally bedtime Jun 11, 2018 Active 1 tablet as needed Zorvolex [facility] 85881536767 35 MG Orally Twice a day September 02, 2017 Active 1 capsule with food or milk as needed Vital Signs Date/Time: Feb 11, 2018 Height 65 in Blood Pressure Diastolic 70 mm Hg Blood Pressure Systolic 120 mm Hg Weight 193.8 lbs Results No Known Results Summary Purpose [employer] Submission
--- OUTSIDE RECORDS SUMMARY | 2018-08-27 15:12 | XMS REPORT ---
Author Author Connie Wise Organization [employer] Address Unknown Phone Unavailable Care Team Providers Care Export Clerk Name Role Phone Connie Wise CP Unavailable [...]
== END | disposition home or self-care (01) ==
LOC: OR 15:08
PROVIDERS: ATTEND Otolaryngology Otolaryngology/Facial Plastic Surgery
DX: J32.0 Chronic maxillary sinusitis (principal); J33.9 Nasal polyp, unspecified; J32.2 Chronic ethmoidal sinusitis; J32.3 Chronic sphenoidal sinusitis; J34.2 Deviated nasal septum; T17.0XXA Foreign body in nasal sinus, initial encounter; I48.91 Unspecified atrial fibrillation; M35.3 Polymyalgia rheumatica; G47.33 Obstructive sleep apnea (adult) (pediatric); K21.9 Gastro-esophageal reflux disease without esophagitis; F32.9 Major depressive disorder, single episode, unspecified; X58.XXXA Exposure to other specified factors, initial encounter; Z88.6 Allergy status to analgesic agent
CPT/HCPCS: 30520; 31259; 31267; 87071; 87075; 87102; 87116; 87186; 87205; 87206 ×2; 88300; 88304; 88305; J0131; J0171; J0360; J1100; J2001 ×2; J2250; J2405; J2704